=== PATIENT | female | born 1980 | race Caucasian/White ===

== ENCOUNTER 2018-11-01 09:41 | Emergency (ER) | payer MEDICAID ==
[~2018-11-01] VITALS: Ht 165.1 cm; Wt 76.7 kg
[2018-11-01 09:48] VITALS: Ht 165.1 cm; Wt 76.7 kg
[2018-11-01 10:19] LABS: BASOPHIL % 0.3 % (0-2); PLATELET COUNT 234 x10^3mcL (130-400); RED CELL DISTRIBUTION WIDTH 13.7 % (11.5-14.5)
[2018-11-01 10:29] LABS: CALCIUM 8.7 mg/dL (8.5-10.1); CARBON DIOXIDE 29.6 mmol/L (21-32); CHLORIDE SERUM 104 mmol/L (98-107); CREATININE SERUM 0.6 mg/dL (0.6-1.0); GFR1 > 60 mL/min; GLUCOSE SERUM 127 mg/dL (74-106); POTASSIUM SERUM 3.9 mmol/L (3.5-5.1); SODIUM SERUM 141 mmol/L (136-145)
[2018-11-01 10:33] LABS: ALBUMIN 3.7 g/dL (3.4-5.0); ALT/SGPT 21 U/L (14-59); AST/SGOT 12 U/L (15-37); LIPASE 112 IU/L (73-393)
[2018-11-01 10:50] LABS: TOTAL PROTEIN, SERUM 7.5 g/dL (6.4-8.2)
[2018-11-01 11:21] LABS: ALKALINE PHOSPHATASE 79 U/L (46-116)
[2018-11-01 12:04] VITALS: BP 131/78
== END 2018-11-01 12:04 | disposition home or self-care (01) ==
LOC: ED 09:41
PROVIDERS: Emergency Medicine
DX: K29.70 Gastritis, unspecified, without bleeding (principal)
CPT/HCPCS: 36415